=== PATIENT | female | born 1975 | race African-American/Black ===

== ENCOUNTER 2017-04-18 15:37 | Emergency (ER) | payer MEDICAID ==
[~2017-04-18] VITALS: Ht 167.6 cm; Wt 74.0 kg
[2017-04-18] MEDS ORDERED: SODIUM CHLORIDE 0.9% 1,000 ML IV ONE (16:23)
[2017-04-18 17:01] LABS: BASOPHILS % 0.9 % (0.0-2.0); DIFFERENTIAL COMMENT 0; EOSINOPHILS % 1.2 % (0.0-5.0); HEMATOCRIT. 25.4 % (36.0-48.0); HEMOGLOBIN. 8.1 g/dL (12.0-16.0); LYMPHOCYTES % 36.4 % (20.0-50.0); MEAN CORPUSCULAR HEMOGLOBIN 23.1 pg (28.0-32.0); MEAN CORPUSCULAR VOLUME 72.3 fL (81.0-99.0); MEAN PLATELET VOLUME 7.9 fl (7.4-10.4); MONOCYTES % 13.9 % (2.0-8.0); NEUTROPHILS % 47.6 % (40.0-76.0); PLATELET 400 x1000/uL (130-400); RED BLOOD CELL COUNT 3.52 mill/uL (4.2-5.4); RED CELL DISTRIBUTION WIDTH 19.9 % (11.6-14.6); WHITE BLOOD COUNT 5.9 x1000/uL (4.5-11.0)
[2017-04-18 17:10] LABS: ALANINE AMINOTRANSFERASE 20 IU/L (13-61); ALBUMIN 3.4 g/dL (3.4-5.0); ANION GAP 13; CALCIUM 8.5 mg/dL (8.5-10.1); CARBON DIOXIDE 24 mEq/L (21-32); CHLORIDE 103 mEq/L (98-107); ETHANOL BLOOD < 10 mg/dL; INDEX HEMOLYSI 1 (1-3); INDEX ICTERIC 1 (1-4); INDEX LIPEMIC 1 (1-3); TROPONIN I < 0.02 ng/mL (0.00-0.04); UREA NITROGEN BLOOD 15 mg/dL (7-21); eGFR > 60 mL/min (>60)
[2017-04-18 17:16] LABS: HCG SCREEN NEGATIVE
[2017-04-18] MEDS ORDERED: POTASSIUM CHLORIDE 20MEQ TABLET SR PO SCH (17:45)
[2017-04-18 18:33] VITALS: BP 109/64
== END 2017-04-18 18:53 | disposition home or self-care (01) ==
LOC: ER 16:21
DX: R55 Syncope and collapse (principal); D50.9 Iron deficiency anemia, unspecified; E87.6 Hypokalemia; E16.2 Hypoglycemia, unspecified; H53.8 Other visual disturbances; F17.200 Nicotine dependence, unspecified, uncomplicated; F12.10 Cannabis abuse, uncomplicated; Z98.890 Other specified postprocedural states
CPT/HCPCS: 36415; 70450; 80053; 84484; 84703; 85025; 93005; 96360; 96361; 99285; G0482; J7030; Z7610